=== PATIENT | female | born 1980 | race Caucasian/White ===

== ENCOUNTER 2025-01-24 11:22 | Inpatient (IN) | payer OTHER ==
[2025-01-24] VITALS (17 sets, daily range): BP systolic 141–167; BP diastolic 67–129
[~2025-01-24] VITALS: Ht 157.5 cm; Wt 113.0 kg
[~2025-01-24 11:22] MED LIST: ACET500; ALBIPROI INH; AMOX500; AZIT250 PO; Bactroban22 GM TOP; CEPH500 PO; CIPR500 PO; CLIN150 PO; CLIN300 PO; CODACE30 PO; Cleocin HCl300 MG PO; DIAZ5 PO; EAR DROPS; HTN MED; HYDACE5 PO; IBUP600 PO; KETO10 PO; MEDR150I; METO5A PO; METPRE4DP PO; MIGRAINE MED; MULVITMINE PO; NORT10 PO; OXYACE5T PO; OXYACE7.5T PO; PERM5TC TOP; PRED20 PO; PROC10 PO; PROP120ER; PROP20; PROP80; Percocet 5-3251 EACH PO; Prednisone10 MG PO; Prednisone20 MG PO; RIZA; RXANTBENOT AU; RXCEPH500 PO; RXCODACET PO; RXHYDACE PO; RXOXYACE PO; RXSULTRIDS PO; RXTRAM50 PO; SULTRIDS PO; SUMA25; TAMS.4ER PO; TRAM50; TRAM50 PO; TRIA80TC TOP; [UNRECOGNIZED DRUG - OTHER] TP
[2025-01-24 11:56] LABS: BASOPHILS ABSOLUTE AUTO 0.07 K/mm3 (0.00-0.23); BASOPHILS PERCENT AUTO 1 % (0-2); EOSINOPHILS ABSOLUTE AUTO 0.04 K/mm3 (0.00-0.68); EOSINOPHILS PERCENT AUTO 1 % (0-6); Hematocrit 20.6 % (33.0-51.0); IMMATURE GRAN ABSOLUTE AUTO 0.02 K/mm3 (0.00-0.10); IMMATURE GRAN PERCENT AUTO 0 % (0-1); LYMPHOCYTES ABSOLUTE AUTO 1.22 K/mm3 (0.84-5.20); LYMPHOCYTES PERCENT AUTO 16 % (21-46); MONOCYTES ABSOLUTE AUTO 0.58 K/mm3 (0.16-1.47); MONOCYTES PERCENT AUTO 8 % (4-13); Mean Corpuscular HGB Conc 26.7 g/dL (31.5-36.5); Mean Corpuscular Volume 67 fL (80-100); NEUTROPHILS ABSOLUTE AUTO 5.64 K/mm3 (1.96-9.15); NEUTROPHILS PERCENT AUTO 75 % (41-73); NRBC ABSOLUTE 0.06 K/mm3 (0.00-0.02); NRBC Auto 0.8 /100 WBC (0.0-0.2); Platelet Count 396 K/mm3 (150-400); RDW Coefficient Variation 20.1 % (11.7-14.2); RDW Standard Deviation 48.3 fL (35.1-46.3)
[2025-01-24 12:03] LABS: Hemoglobin 5.5 g/dL (11.5-16.0)
[2025-01-24 12:21] LABS: Alanine Aminotransfer (ALT/SGP 60.0 U/L (12-78); Albumin, Blood 3.1 g/dL (3.4-5.0); Albumin/Globulin Ratio 0.8 (0.8-1.8); Anion Gap 10.0 mmol/L (3-11); Aspartate Aminotrans (AST/SGOT 88.0 U/L (12-37); Bilirubin, Total 1.0 mg/dL (0.1-1.0); Blood Urea Nitrogen 11.0 mg/dL (8-24); CO2, Blood 24.0 mmol/L (21-32); Calcium, Blood 8.5 mg/dL (8.5-10.1); Chloride, Blood 105.0 mmol/L (98-108); Creatinine, Blood 0.64 mg/dL (0.40-1.00); Globulin, Blood 4.0 g/dL (2.2-4.0); Glucose, Blood 130.0 mg/dL (70-99); Magnesium, Blood 2.3 mg/dL (1.6-2.4); Potassium, Blood 3.8 mmol/L (3.5-5.5); Sodium, Blood 135.0 mmol/L (136-145); Total Protein, Blood 7.1 g/dL (6.4-8.2)
[2025-01-24 12:34] LABS: Prothrombin Time Results 12.2 Sec (9.7-11.5)
[2025-01-24 12:48] LABS: Ferritin, Serum 4.0 ng/mL (8-252); Total Iron Binding Capacity 543.0 ug/dL (250-450)
[2025-01-24] MEDS ORDERED: Heparin Sodium 5000 Units/ML 1ML MDV IV ONE (13:15)
[2025-01-24] MEDS ORDERED: Heparin Sodium,Porcine/0.5 NS 500 ML IV SCH (13:20)
[2025-01-24] MEDS ORDERED: FLU VACC TS2025-26(6MOS UP)/PF 45 MCG/0.5 ML SYRINGE IM SCH (13:25)
[2025-01-24] MEDS ORDERED: NS 1,000 ML IV SCH (13:30)
--- NOTE | 2025-01-24 16:25 | NUR ---
ASSUMPTION OF CARE PT A/OX4, MOVES ALL EXTREMITIES SPONTANEOUSLY, FOLLOWS COMMANDS. PT REPORTS 5/10 SWELLING/PAIN IN LLE THAT HAS BEEN PRESENT X 1 YEAR. DENIES NUMBNESS/TINGLING. NSR ON MONITOR, CAP REFILL<3 SEC, MINIMAL EDEMA IN LLE NOTED. LLE ELEVATED WITH PILLOWS. HR 90'S, MAPS >65. LUNG SOUNDS CLEAR AND DIM AT BASES, SATURATING >95% ON 2 LPM NC. ABD MILDLY DISTENDED AND SOFT/NONTENDER. BOWEL SOUNDS ACTIVE IN ALL QUADRANTS. PT CONTINENT OF BOWEL AND BLADDER. SKIN INTACT AND W/O BREAKDOWN. PT IS VERY ANXIOUS REGARDING MEDICAL CARE, BUT IS COOPERATIVE AND COMMUNICATIVE. ACCESS: LAC PIV, RW PIV GTTS: HEPARIN AT 18 UNITS/KG/HR
--- NOTE | 2025-01-24 17:26 | NUR ---
PM NOTE ASSESSMENT UNCHANGED FROM CARE ASSUMPTION NOTE. PT RECEIVED SECOND UNIT OF PRBC W/O SIGNS/SYMPTOMS OF REACTION. PT REPORTS CONTINUED PAIN OF LLE AND IS VERY ANXIOUS. PT EASILY CALMED W/ DISCUSSION. PATIENT PROVIDED W/ ELEVATION TO LLE AND WARM PACK FOR COMFORT. ACCESS: LAC PIV, RW PIV GTTS: HEPARIN 18UNITS/KG/HR
--- NOTE | 2025-01-24 20:40 | NUR ---
ASSUMPTION OF CARE: ASSUMED CARE OF PT AT 1900 PT RELAXING IN BED AND CURRENTLY HAS 18U/KG/HR OF HEPARIN INFUSING TO PATENT R WRIST PIV AND 2ND UNIT OF PRBC INFUSING TO PATENT LAC PIV. PT IS BEDREST BUT UP TO BATHROOM WITH ASSISTANCE. PT HAS LLE SORENESS DUE TO DVT. UPON ENTERING ROOM PT WAS ON 2L NC AND DESAT TO 86% SO PT WAS PUT ON 9L HIGHFLOW NC (SEE ASSESSMENT) WILL TITRATE BACK DOWN LONG SPO2 MAINTAINS >90%. SBP'S 140-150'S AND HR IN 90'S. PT A&OX4 AND ABLE TO MAKE NEEDS KNOWN. PT WAS ANXIOUS-XANAX GIVEN AT BEDTIME (SEE EMAR). PT HAS CALL LIGHT AND BED LOW AND LOCKED FOR SAFETY.
[2025-01-24 21:08] LABS: Hematocrit 24.8 % (33.0-51.0); Hemoglobin 7.3 g/dL (11.5-16.0)
[2025-01-24] MEDS ORDERED: Dose Adjust by Pharmacy XX STA (21:51)
[2025-01-25] VITALS (24 sets, daily range): BP systolic 116–191; BP diastolic 71–133
--- NOTE | 2025-01-25 02:15 | NUR ---
HOSPITALIST CALLED: PT HAS HAD CONSISTIENT HIGHER BP'S SBP'S 170'AND DBP'S >100. DR CALLED AND SAID NO SUGGESTIONS AT THIS TIME BUT HE WILL REVIEW THE CHART AND POSSIBLY ADD IN SOME PRN MEDICATIONS WITH PARAMETERS. CALLED AT 0212
[2025-01-25] MEDS ORDERED: HydrALAZINE HCl 20 MG / ML 1ML Vial IV PRN ×2 (03:10→11:30)
[2025-01-25 04:13] LABS: Hematocrit 26.0 % (33.0-51.0); Hemoglobin 7.5 g/dL (11.5-16.0); Mean Corpuscular HGB Conc 28.8 g/dL (31.5-36.5); Mean Corpuscular Volume 70 fL (80-100); NRBC ABSOLUTE 0.17 K/mm3 (0.00-0.02); NRBC Auto 2.1 /100 WBC (0.0-0.2); Platelet Count 360 K/mm3 (150-400); RDW Coefficient Variation 21.7 % (11.7-14.2); RDW Standard Deviation 55.0 fL (35.1-46.3)
[2025-01-25 04:32] LABS: Anion Gap 10.0 mmol/L (3-11); Blood Urea Nitrogen 11.0 mg/dL (8-24); CO2, Blood 22.0 mmol/L (21-32); Calcium, Blood 8.1 mg/dL (8.5-10.1); Chloride, Blood 108.0 mmol/L (98-108); Creatinine, Blood 0.59 mg/dL (0.40-1.00); Glucose, Blood 127.0 mg/dL (70-99); Potassium, Blood 3.8 mmol/L (3.5-5.5); Sodium, Blood 136.0 mmol/L (136-145)
[2025-01-25] MEDS ORDERED: Dose Adjust by Pharmacy XX STA (04:40)
--- NOTE | 2025-01-25 05:39 | NUR ---
SHIFT SUMM: PT WAS ABLE TO GET SOME SLEEP THIS SHIFT AND PATENT PIV TO LAC WITH HEPARIN CONTINUING TO INFUSE AT 20 U/KG/HR. ALSO PATENT PIV TO RW. PATIENT HAS COMPLAINTS OF LLE PAIN TO BEHIND THE KNEE AND PAIN IS MANAGED WITH HEAT PACKS AND CAMMY (SEE EMAR). NO ADDITIONAL SWELLING OR CIRCULATION CHANGE TO BLE'S. PT WAS GIVEN PRN HYDRALAZINE FOR HTN THIS SHIFT BUT NOW MONITOR READS SBP 160'S AND HR IN THE 90'S. SPO2 >90% ON 9L HIGH FLOW FOR WHEN SHES ASLEEP SHE DESATS BUT WHILE AWAKE SHES ABLE TO MAINTAIN SPO2> 94% ON RA. PT HAS CALL LIGHT IN REACH AND ABLE TO MAKE NEEDS KNOWN. BED LOW AND LOCKED FOR SAFETY.
[2025-01-25] MEDS ORDERED: Sod Ferric Gluc Complx/Sucrose 125 MG in NS 100 ML IV SCH (09:00)
[2025-01-25 13:18] LABS: Stool Occult Blood Guaiac 1 Pos (Neg)
--- NOTE | 2025-01-25 16:50 | NUR ---
SHIFT SUMMARY PT ASLEEP AT TIME OF BEDSIDE REPORT W/ NOC RN. PT A/OX4, MOVES ALL EXTREMITIES SPONTANEOUSLY, AND CALLS APPROPRIATELY. PT REPORTS PAIN IN LLE THAT IS IMPROVED W/ REST AND MEDS PER MAR. PT DENIES NUMBNESS/TINGLING. NSR ON MONTIOR, MAPS >65, CAP REFILL <3 SEC, AND MILD EDEMA NOTED IN LLE. SATURATING >95% ON RA, 2-4LPM NC WHEN SLEEPING. LUNG SOUNDS CLEAR/DIM T/O JOHNSON. ABD MILDLY DISTENDED AND SOFT/NONTENDER. BOWEL SOUNDS ACTIVE IN ALL QUADRANTS. PT CONTINENT OF BOWEL AND BLADDER. SKIN INTACT AND W/O BREAKDOWN. PT IS ANXIOUS REGARDING PLAN OF CARE AND STATES SHE DOES NOT FEEL READY TO DISCHARGE TOMORROW AM. I ADVISED THAT STATUS OF ADMISSION/CARE PLAN IS EVALUATED DAILY AND WILL BE DISCUSSED FURTHER EVERY AM. SHE EXPRESSED UNDERSTANDING OF THIS AND REPORTED SHE WOULD FEEL COMFORTABLE COMMUNICATING NEEDS AT THAT TIME. ACCESS: RAC PIV, LAC PIV GTTS: HEPARIN 20UNITS/KG/HR
[2025-01-26 03:23] LABS: BASOPHILS ABSOLUTE AUTO 0.10 K/mm3 (0.00-0.23); BASOPHILS PERCENT AUTO 1 % (0-2); EOSINOPHILS ABSOLUTE AUTO 0.18 K/mm3 (0.00-0.68); EOSINOPHILS PERCENT AUTO 2 % (0-6); Hematocrit 27.9 % (33.0-51.0); Hemoglobin 8.1 g/dL (11.5-16.0); IMMATURE GRAN ABSOLUTE AUTO 0.10 K/mm3 (0.00-0.10); IMMATURE GRAN PERCENT AUTO 1 % (0-1); LYMPHOCYTES ABSOLUTE AUTO 2.41 K/mm3 (0.84-5.20); LYMPHOCYTES PERCENT AUTO 28 % (21-46); MONOCYTES ABSOLUTE AUTO 0.74 K/mm3 (0.16-1.47); MONOCYTES PERCENT AUTO 9 % (4-13); Mean Corpuscular HGB Conc 29.0 g/dL (31.5-36.5); Mean Corpuscular Volume 72 fL (80-100); NEUTROPHILS ABSOLUTE AUTO 5.13 K/mm3 (1.96-9.15); NEUTROPHILS PERCENT AUTO 59 % (41-73); NRBC ABSOLUTE 0.23 K/mm3 (0.00-0.02); NRBC Auto 2.7 /100 WBC (0.0-0.2); Platelet Count 382 K/mm3 (150-400); RDW Coefficient Variation 22.2 % (11.7-14.2); RDW Standard Deviation 56.6 fL (35.1-46.3)
[2025-01-26 03:40] LABS: Anion Gap 9.0 mmol/L (3-11); Blood Urea Nitrogen 11.0 mg/dL (8-24); CO2, Blood 24.0 mmol/L (21-32); Calcium, Blood 8.3 mg/dL (8.5-10.1); Chloride, Blood 106.0 mmol/L (98-108); Creatinine, Blood 0.53 mg/dL (0.40-1.00); Glucose, Blood 105.0 mg/dL (70-99); Potassium, Blood 4.0 mmol/L (3.5-5.5); Sodium, Blood 135.0 mmol/L (136-145)
[2025-01-26] MEDS ORDERED: Dose Adjust by Pharmacy XX STA (03:42)
--- NOTE | 2025-01-26 03:55 | NUR ---
@[id number] REPORT REVEIVED FROM JACQUE ROMERO RN. PT ARRIVED TO THE MEDICAL ROOM WITH ALL HER BELONINGS. EDUCATED PHOTOENGRAVER LIGHT AND FALL PRECAUTIONS. CONTINUING HEPARIN AND 9L VIA OXIMASK. BED AT THE LOWEST POSITION, CALL LIGHT WITHIN REACH. PT IS A/O X4, ABLE TO MAKE HER NEEDS KNOWN AND COOPERATIVE WITH CARE.
[2025-01-26 07:08] VITALS: BP 166/87
[2025-01-26 10:45] VITALS: BP 146/107
[2025-01-26 11:03] VITALS: BP 149/106
[2025-01-26 15:06] LABS: HOMOCYSTEINE, TOTAL 11 umol/L (0-15)
[2025-01-26 16:10] VITALS: BP 151/100
--- NOTE | 2025-01-26 16:19 | NUR ---
PT A/OX4. PLEASANT AND COOPERATIVE WITH CARE. ABLE TO MAKE NEEDS KNOWN WITH CALL LIGHT. PT IS INDEPENDENT WITH AMBULATION. CONT HEPARIN WAS D/C'D TODAY, PT WAS SWITCHED TO PO XARELTO. PTS LEFT LEG CONTINUES TO BE NOTICABLY SWOLLEN AND PAINFUL. PAIN HAS BEEN TREATED PER EMAR. BED IS IN LOWEST POSITION, CALL LIGHT IN REACH. NO ACUTE NEEDS AT THIS TIME.
[2025-01-26] MEDS ORDERED: HYDCHL25 PO (17:17)
[2025-01-26] MEDS ORDERED: Ketorolac Tromethamine 30mg Vial IV ONE (17:25)
[2025-01-26] MEDS ORDERED: XARELTO15 MG PO (17:25)
[2025-01-26] MEDS ORDERED: XARELTO20 MG PO (17:27)
[2025-01-26] MEDS ORDERED: VITAMIN C125 MG PO (17:28)
[2025-01-26] MEDS ORDERED: COLACE100 MG PO (17:30)
[2025-01-26] MEDS ORDERED: FERSU300 PO (17:30)
[2025-01-26] MEDS ORDERED: LOSA25 PO (17:31)
[2025-01-26] MEDS ORDERED: Percocet 5-3251 EACH PO (17:34)
[2025-01-26] MEDS ORDERED: MIRALAX17 GM PO (17:38)
[2025-01-26 19:56] VITALS: BP 145/96
--- NOTE | 2025-01-26 20:40 | NUR ---
HOSPITALIST CONTACT PT IS CURRENT SMOKER. REQUESTING NICP PATCH. CALL TO HOSPITALIST. SPOKE TO RAVINDRA. NEW ORDER FOR 21G NICPATCH DAILY, OK TO START NOW.
[2025-01-27 01:02] VITALS: BP 152/97
[2025-01-27 03:56] VITALS: BP 149/90
--- NOTE | 2025-01-27 04:16 | NUR ---
Shift Summary AOx4. Patient maintains 4L PRN @ HS for suspected AISSATOU and per patient request. Plan is to f/u w/ outpatient sleep study per notes. Pleasant. Cooperative. Restless. Had Break RN obtain order for and applied nicotine patch per patient's request. She verbalized smoking 1PPD. Medicating for pain per EMAR w/ good effect.
[2025-01-27 07:48] VITALS: BP 146/91
[2025-01-27 16:02] LABS: B2GLYCOPROTEIN 1, IGG ANTIBODY <10 SGU (<=20); B2GLYCOPROTEIN 1, IGM ANTIBODY <10 SMU (<=20)
[2025-01-27 17:11] LABS: ANTITHROMBIN, ENZYM (ACTIVITY) 85 % (76-128)
[2025-01-27 21:51] LABS: PROTEIN C FUNCTIONAL 57 % (83-168)
[2025-01-27 23:02] LABS: APC RESISTANCE 4.28 (>=2.00); FACTOR V LEIDEN BY PCR Not Done; FACV REF SPECIMEN Not Done
[2025-01-28 08:33] LABS: PROTEIN S AG FREE 80 % (55-123)
[2025-01-28 21:59] LABS: ANTI-XA QUALITATIVE INTERP Present (Not Present); ANTICOAG MEDICATION NEUTRALIZ Hepzyme (Not Performed); DRVVT 1:1 MIX RATIO 1.12 (<=1.20); DRVVT CONFIRMATION RATIO 0.92 (<=1.20); DRVVT SCREEN RATIO 1.29 (<=1.20); HEXAGONAL PHOSPHOLIPID CONFIRM Not Performed s (<=7.9); NEUTRALIZED DRVVT SCREEN RATIO 1.32 (<=1.20); NEUTRALIZED PTT-LA RATIO 1.13 (<=1.20); PROTHROMBIN TIME (PT) 16.1 s (12.0-15.5); PTT-LA RATIO 1.68 (<=1.20); THROMBIN TIME (TT) 35.1 s (<=19.5)
== END 2025-01-27 12:05 | disposition home or self-care (01) | DRG 811 ==
LOC: ER 11:22 → ICUE 11:23 → ER 13:25 → ICUE 13:25 → MEDS 01-26 03:17 → ENPENDDIS 01-26 18:29 → MEDS 01-27 12:05
PROVIDERS: Student in an Organized Health Care Education/Training Program; ADMIT Internal Medicine
PROC: 30233N1 Transfusion of Nonautologous Red Blood Cells into Peripheral Vein, Percutaneous Approach (ICD-10-PCS; principal; 2025-01-24)
PROC: 3E02340 Introduction of Influenza Vaccine into Muscle, Percutaneous Approach (ICD-10-PCS; 2025-01-24)
DX: D62 Acute posthemorrhagic anemia (principal); I26.99 Other pulmonary embolism without acute cor pulmonale; J96.01 Acute respiratory failure with hypoxia; I82.412 Acute embolism and thrombosis of left femoral vein; I82.432 Acute embolism and thrombosis of left popliteal vein; I82.452 Acute embolism and thrombosis of left peroneal vein; I82.442 Acute embolism and thrombosis of left tibial vein; D50.9 Iron deficiency anemia, unspecified; N92.0 Excessive and frequent menstruation with regular cycle; G47.33 Obstructive sleep apnea (adult) (pediatric); Z66 Do not resuscitate; J44.89 Other specified chronic obstructive pulmonary disease; I10 Essential (primary) hypertension; F17.210 Nicotine dependence, cigarettes, uncomplicated; Z88.0 Allergy status to penicillin; Z23 Encounter for immunization; Z79.899 Other long term (current) drug therapy
CPT/HCPCS: 36415; 36430; 71260; 80048; 80053; 82270; 82728; 83540; 83550; 83735; 83880; 84484; 85014; 85018; 85025; 85027; 85520; 85525; 85610; 85613; 85670; 85730; 86850; 86900; 86901; 86923; 93005; 93010; 93306; 93971; 96365; 96366; 96374-59; 96375; 99285-25; A9270; G0378; J0360; J1644; J1885; J2916; J7030; P9016; Q9967